=== PATIENT | female | born 1950 | race Caucasian/White ===

== ENCOUNTER 2025-07-09 20:59 | Emergency (ER) | payer MEDICARE, OTHER ==
[~2025-07-09] VITALS: Ht 162.6 cm; Wt 56.7 kg
[2025-07-09] MEDS ORDERED: HYDROCODONE/APAP 5/325MG TABLET ONE (22:40)
[2025-07-09] MEDS: HYDROCODONE/APAP 5/325MG TABLET PO ONE (22:44)
[2025-07-10 01:09] VITALS: BP 118/67; TEMP 98.7; O2SAT 98
== END 2025-07-10 01:28 | disposition home or self-care (01) ==
LOC: ER 21:12
DX: R51.9 Headache, unspecified (principal); I10 Essential (primary) hypertension; E03.9 Hypothyroidism, unspecified
CPT/HCPCS: 70450-TC